=== PATIENT | female | born 1975 | race Caucasian/White ===

== ENCOUNTER 2023-09-11 09:48 | Day surgery (SDC) | payer OTHER ==
[2023-09-11 09:24] LABS: Specific Gravity 1.018 (1.005-1.030)
[2023-09-11 09:30] LABS: Absolute Lymphocytes (CBC) 1.8 K/uL (0.7-4.9); Hematocrit 39.6 % (36.0-45.0); Lymphocytes % 24.2 % (15.3-44.8); MCV 90.9 fL (80-100); MPV 8.6 fL (7.6-11.3); Platelets 264 thou/uL (152-406); RBC Red Blood Cell Count 4.36 M/uL (3.86-4.86)
[2023-09-11] MEDS ORDERED: Ringers Lactate 1,000 ML IV ONE (10:25)
[2023-09-11] MEDS ORDERED: SCOPOLAMINE HYDROBROMIDE PATCH TD ONE (10:25)
[2023-09-11] MEDS ORDERED: METOCLOPRAMIDE 10 MG/2mL INJ ONE (12:05)
[2023-09-11] MEDS ORDERED: SILVER NITRATE 1 APPL TOP ONE (13:06)
[2023-09-11] MEDS ORDERED: LIDOCAINE HCL/EPINEPHRINE 20 ML MDV ONE (13:06)
[2023-09-11] MEDS ORDERED: MIDAZOLAM HCL 2 MG/2 ML INJ ONE (13:24)
[2023-09-11] MEDS ORDERED: FENTANYL CITR 100 MCG/2 ML ONE (13:24)
[2023-09-11] MEDS ORDERED: propofoL 200 MG/20 ML VIAL IV ONE (13:24)
[2023-09-11] MEDS ORDERED: LIDOCAINE 1% MPF 2 ML AMPULE ONE (13:27)
[2023-09-11] MEDS ORDERED: ONDANSETRON 4 MG/2 ML VIAL ONE (13:27)
[2023-09-11] MEDS ORDERED: ROCURONIUM 50 MG/5 ML VIAL IV ONE (13:36)
[2023-09-11] MEDS ORDERED: KETOROLAC 30 MG/ML INJ ONE (14:12)
[2023-09-11 14:58] VITALS: O2SAT 100
[2023-09-11] MEDS ORDERED: IBUPROFEN 200 MG TAB PO ONE (15:24)
[2023-09-11 15:56] VITALS: BP 119/89; TEMP 97.7
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
== END 2023-09-11 15:48 | disposition home or self-care (01) ==
LOC: OR 09:48
PROVIDERS: ATTEND Obstetrics & Gynecology
PROC: 0UDB8ZX Extraction of Endometrium, Via Natural or Artificial Opening Endoscopic, Diagnostic (ICD-10-PCS; principal; 2023-09-11 13:30)
DX: N92.1 Excessive and frequent menstruation with irregular cycle (principal); N94.5 Secondary dysmenorrhea; N85.00 Endometrial hyperplasia, unspecified; E03.9 Hypothyroidism, unspecified; R73.03 Prediabetes; E66.9 Obesity, unspecified; Z68.30 Body mass index [BMI] 30.0-30.9, adult
CPT/HCPCS: 85025; 36415; 81025; 88305; 58558; J2704; J2765; J2250; J3010; J2405; J7120